=== PATIENT | male | born 2005 | race Caucasian/White ===

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

== ENCOUNTER 2024-07-27 19:37 | Emergency (ER) | payer SELFPAY ==
[~2024-07-27] VITALS: Ht 170.1 cm; Wt 59.0 kg
[~2024-07-27 19:37] MED LIST changes: +COMPLETE ALLERG25 M2 PO
[2024-07-27] MEDS ORDERED: methylPREDNISolone sod succ 125 MG VIAL IM ONE (19:55)
[2024-07-27] MEDS ORDERED: PREDNISONE20 M1 PO (19:55)
== END 2024-07-27 20:09 | disposition home or self-care (01) ==
LOC: ED 19:37
DX: L23.7 Allergic contact dermatitis due to plants, except food (principal)

== ENCOUNTER 2024-10-26 10:04 | Emergency (ER) | payer SELFPAY ==
[~2024-10-26] VITALS: Ht 170.1 cm; Wt 59.0 kg
[~2024-10-26 10:04] MED LIST changes: +PREDNISONE20 M1 PO
[2024-10-26] MEDS ORDERED: SODIUM CHLORIDE 0.9% 1,000 ML IV ONE (10:15)
[2024-10-26] MEDS ORDERED: FAMOTIDINE 50 ML IV ONE (10:15)
[2024-10-26] MEDS ORDERED: Ondansetron Hydrochloride 4 MG/2 ML VIAL IV ONE (10:15)
[2024-10-26 10:32] LABS: BASO % 0.4 % (0.0-1.0); EOS % 0.1 % (1.0-4.0); HEMATOCRIT 44.8 % (42.0-52.0); MEAN CELL VOLUME 82.4 fl (80.0-94.0); MEAN CORPUSCULAR HGB 28.7 pg (27.0-31.0); MEAN CORPUSCULAR HGB CONC 34.8 g/dl (33.0-37.0); MEAN PLATELET VOLUME 10.5 fl (9.6-12.3); MONO # 0.7 10*3/uL (0.1-1.0); MONO % 6.7 % (3.0-9.0); NEUT # 9.1 10*3/uL (2.3-7.9); NEUT % 88.3 % (47.0-73.0); PLATELET COUNT AUTOMATED 207 10*3/uL (130-400); RED BLOOD COUNT 5.44 10*6/uL (4.50-5.90); RED CELL DISTRI WIDTH 11.7 % (0-14.5); WHITE BLOOD COUNT 10.3 10*3/uL (4.8-10.8)
[2024-10-26 10:53] LABS: LIPASE 27 U/L (12-53)
[2024-10-26 10:54] LABS: ALKALINE PHOSPHATASE 77 U/L (46-116); BUN 19 mg/dl (9-23); CHLORIDE 101 mmol/L (98-107); POTASSIUM 3.6 mmol/L (3.4-5.1); SGPT/ALT 7 U/L (5-49); TOTAL PROTEIN 8.1 gm/dL (6.0-8.0)
[2024-10-26] MEDS ORDERED: Ketorolac Tromethamine 30 MG/ML VIAL IV ONE (11:00)
[2024-10-26 11:32] LABS: BILIRUBIN Negative (Negative); BLOOD Negative (Negative); CLARITY Clear (Clear); COLOR Yellow (Yellow); GLUCOSE Negative (Negative); KETONE 3+ (Negative); LEUKO ESTERASE Negative (Negative); NITRITE Negative (Negative); PH 6.5 (4.5-8.0); SPECIFIC GRAVITY >= 1.030 (1.001-1.030); UROBILINOGEN 0.2 E.U./dl (0.0-1.0)
[2024-10-26 12:05] LABS: RBC 0-2 rbc/hpf (0-2)
[2024-10-26] MEDS ORDERED: PEPCID20 MG PO (12:27)
[2024-10-26] MEDS ORDERED: Ondansetron4 MG PO (12:27)
== END 2024-10-26 12:47 | disposition home or self-care (01) ==
LOC: ED 10:04
PROVIDERS: Emergency Medicine
DX: K52.9 Noninfective gastroenteritis and colitis, unspecified (principal); J45.909 Unspecified asthma, uncomplicated; F41.9 Anxiety disorder, unspecified; M54.50 Low back pain, unspecified; Z87.442 Personal history of urinary calculi